=== PATIENT | male | born 1980 ===

== ENCOUNTER 2017-08-11 05:20 | Emergency (ER) | payer SELFPAY, OTHER ==
[2017-08-11] MEDS: METHYLPREDNISOLONE 125 MG INJ IM (06:47)
[2017-08-11] MEDS: DIPHENHYDRAMINE 50 MG CAP PO (06:47)
[2017-08-11] MEDS: FAMOTIDINE 20 MG TAB PO (06:47)
== END 2017-08-11 07:11 | disposition home or self-care (01) ==
LOC: FTE 05:20
DX: R21 Rash and other nonspecific skin eruption (principal); L50.9 Urticaria, unspecified
CPT/HCPCS: 96372; 99284-25